=== PATIENT | female | born 1965 | race Caucasian/White ===

== ENCOUNTER 2016-12-18 03:12 | Emergency (ER) | payer OTHER ==
[~2016-12-18] VITALS: Ht 167.6 cm; Wt 77.1 kg
[~2016-12-18 03:12] MED LIST: CIPROFLOXACIN500 MG PO; COMPAZINE10 MG PO; FLAGYL500 MG PO; ZANTAC150 MG PO
[2016-12-18 03:20] VITALS: BP 132/78
[2016-12-18] MEDS ORDERED: OMEPRAZOLE40 MG PO (03:23)
[2016-12-18] MEDS ORDERED: FENOFIBRATE40 MG PO (03:24)
[2016-12-18 03:36] LABS: BILIRUBIN 2+ (NEGATIVE); BLOOD 3+ (NEGATIVE); CLARITY TURBID (CLEAR); GLUCOSE 1+ (NEGATIVE); KETONE 1+ (NEGATIVE); LEUKO ESTERASE 3+ (NEGATIVE); NITRITE POSITIVE (NEGATIVE); PH 6.5 (5.0-9.0); PROTEIN 3+ (NEGATIVE); SPECIFIC GRAVITY 1.015 (1.005-1.030); UROBILINOGEN >= 8.0 E.U./dl (0.2-1.0)
[2016-12-18 03:37] LABS: COLOR RED (YELLOW)
[2016-12-18 03:47] LABS: BACTERIA 4+; RBC TNTC rbc/hpf (0-2); URINE REFLEX COMMENT YES (NO)
[2016-12-18] MEDS ORDERED: CIPRO250 MG PO (04:04)
[2016-12-18] MEDS ORDERED: DIFLUCAN150 MG PO (04:04)
[2016-12-18] MEDS ORDERED: PYRIDIUM200 M1 PO (04:04)
== END 2016-12-18 04:10 | disposition home or self-care (01) ==
LOC: ED 03:12
PROVIDERS: Emergency Medicine Emergency Medical Services
DX: N30.90 Cystitis, unspecified without hematuria (principal); Z88.6 Allergy status to analgesic agent; Z79.899 Other long term (current) drug therapy

== ENCOUNTER 2021-08-18 18:14 | Emergency (ER) | payer BC ==
[~2021-08-18] VITALS: Ht 165.1 cm; Wt 80.3 kg
[~2021-08-18 18:14] MED LIST changes: +CIPRO250 MG PO; +DIFLUCAN150 MG PO; +FENOFIBRATE40 MG PO; +OMEPRAZOLE40 MG PO; +PYRIDIUM200 M1 PO
[2021-08-18 18:32] VITALS: BP 150/95
== END 2021-08-18 19:57 | disposition left against medical advice (07) ==
LOC: ED 18:14
DX: L50.0 Allergic urticaria (principal); Z53.21 Procedure and treatment not carried out due to patient leaving prior to being seen by health care provider